=== PATIENT | female | born 1960 | race Caucasian/White ===

== ENCOUNTER 2016-08-21 23:09 | Emergency (ER) | payer MEDICAID, OTHER ==
[2016-08-21 23:16] VITALS: TEMP 97.5
--- NOTE | 2016-08-21 23:47 | EDPHY ---
H & P Stated Complaint: sternal pain, B flank pain, generalized aches/cramps x3hr HPI/ROS: HPI CHIEF COMPLAINT: Multiple complaints HISTORY OF PRESENT ILLNESS: This patient very pleasant 56-year-old female significant past medical history for hepatitis-C, she presents emergency room stating that she has low back pain that has radiated out both right and left CVA region. Patient tells me that she has burning pain all over body, denies having fever, denies having chest pain or significant shortness of breath. She does tell me her main complaint is lower back pain, bilateral CVA region. She does endorse a cough with sputum production. She also tells me that she has burning skin all over. She denies headache or neck pain. Past Medical History: Hepatitis-C, liver cirrhosis, esophageal varices, GI bleed Past Surgical History: Denies any recent surgical history Social History: Occasional marijuana use, denies alcohol, illicit drugs or tobacco Family History: noncontributory ROS REVIEW OF SYSTEMS: A comprehensive 10 point review of systems is otherwise negative aside from elements mentioned in the history of present illness. Exam Constitutional Appears well nontoxic,triage nursing summary reviewed, vital signs reviewed, awake/alert. Eyes normal conjunctivae and sclera, EOMI, PERRLA. HENT normal inspection, atraumatic, moist mucus membranes, no epistaxis, neck supple/ no meningismus, no raccoon eyes. Respiratory clear to auscultation bilaterally, normal breath sounds, no respiratory distress, no wheezing. Cardiovascular rate normal, regular rhythm, no murmur, no edema, distal pulses normal. Gastrointestinal no fluid wave, no significant distension, soft, non-tender, no rebound, no guarding, normal bowel sounds, no distension, no pulsatile mass. Genitourinary no CVA tenderness. Musculoskeletal no midline vertebral tenderness, full range of motion, no calf swelling, no tenderness of extremities, no meningismus, good pulses, neurovascularly intact. Skin pink, warm, & dry, no rash, skin atraumatic. Neurologic awake, alert and oriented x 3, AAOx3, moves all 4 extremities equally, motor intact, sensory intact, CN II-XII intact, normal cerebellar, normal vision, normal speech. Psychiatric normal mood/affect. Heme/Lymph/Immune no lymphadenopathy. Differential Diagnosis: Includes but is not limited to in a particular order, urinary tract infection, pyelonephritis, gastritis, pancreatitis, pneumonia, pulmonary embolism, ACS, acute MA, dissection Medical Decision Making: patient had an IV established obtain blood work, she will be given a fluid bolus, 100 mcg IV fentanyl for pain control. Check a chest x-ray, EKG, cardiac marker, urine for pyelonephritis. Abdominal blood work. Re-evaluation: EKG interpretation by me on record in [employer] system. Impression time of EKG 2349, this is sinus rhythm rate of 72, no acute ischemic changes appreciated specifically no ST elevation, ST depression T-wave abnormalities. No prolonged intervals. 0127: CT scan of the Chest The results of the study are Negative for PE, clear lungs. The study was read by Dr. Amaya. I viewed the images myself on the PACS system. CT scan of the abdomen pelvis with IV contrast. The results of the study are mild thickening of the descending colon, otherwise no free air, no evidence of pyelonephritis. The study was read by Dr. Amaya I viewed the images myself on the PACS system. 0321: On re-evaluation patient is resting comfortably however she is now complaining of diffuse entire whole body pain. She tells me the fentanyl has not been working for her and she is specifically requesting Dilaudid. On re- examination abdomen is soft she is not having any chest pain. She tells me she has bony pain all over. I have ordered her 4 mg IV morphine to see if this improves her pain. Of note on evaluation of her lab work she does have some elevated LFTs and bilirubin however these have been elevated in the past. She does have underlying liver cirrhosis, hepatitis C. this patient does not have a fever here. Otherwise her blood work is reassuring. I have not found anything acute. Patient tells me that she is irate that she got fentanyl multiple times. She fired her "nurse" patient tells me that she wants Dilaudid does not want fentanyl. Patient states "I fired my fucking nurse for not giving me Dilaudid" 0327: re-evaluation at this time I did agree to give her 1 more dose of pain medicine and IV morphine. I did review her blood work including bilirubin and LFTs. Her LFTs been higher in the past, her bili room is slightly higher than normal however she does a high bilirubin. I have found any acute signs of infection or acute abnormality on CT scan of her chest shows no pulmonary embolism or pneumonia. The CT of the abdomen shows some thickening of her ascending colon however she has not had any diarrhea and she is not having severe abdominal pain. Patient having diffuse pain. No great explanation for this. Her pain is controlled after morphine. She upon going home. She has no abdominal pain nose no fluid wave. No fever no high leukocytosis. I feel comfortable allowing this patient to go home. She does understand return emergency room if she has worsening symptoms includes vomiting, high fever. Source: Patient - Personal History Current Tetanus/Diphtheria Vaccine: No Current Tetanus Diphtheria and Acellular Pertussis (TDAP): No - Medical/Surgical History Hx Asthma: No Hx Chronic Respiratory Disease: No Hx Diabetes: No Hx Cardiac Disease: No Hx Renal Disease: No Hx Cirrhosis: No Hx Alcoholism: No Hx HIV/AIDS: No Hx Splenectomy or Spleen Trauma: No Other PMH: Hep C , "bad liver", hx pneumonia - Social History Smoking Status: Former smoker Constitutional: Initial Vital Signs Temperature (C) 36.4 C 08/21/16 23:10 Heart Rate 74 08/21/16 23:10 Respiratory Rate 18 08/21/16 23:10 Blood Pressure 101/63 08/21/16 23:10 O2 Sat (%) 95 08/21/16 23:10 O2 Delivery Mode Nasal Cannula O2 (L/minute) 2 Allergies/Adverse Reactions: latex Allergy (Intermediate, Verified 05/07/13 14:50) rash, itching tomatoes Allergy (Mild, Uncoded 01/17/13 17:14) heartburn Home Medications: Medication Instructions Recorded Ascorbic Acid 500 mg PO DAILY PRN 05/07/13 Albuterol Hfa Anes Only 08/21/16 Medical Decision Making - Data Points Laboratory Results: Laboratory Results 08/21/16 23:54 08/21/16 23:54 08/22/16 08/21/16 08/21/16 01:45 23:54 23:54 WBC RBC Hgb Hct MCV MCH MCHC RDW Plt Count MPV Neut % (Auto) Lymph % (Auto) [place] % (Auto) Eos % (Auto) Baso % (Auto) Nucleat RBC Rel Count Absolute Neuts (auto) Absolute Lymphs (auto) Absolute Monos (auto) Absolute Eos (auto) Absolute Basos (auto) Absolute Nucleated RBC Immature Gran % Immature Gran # PT 17.7 SEC H SEC (12.0-15.0) INR 1.46 H (0.83-1.16) APTT 33.1 SEC SEC (23.0-38.0) D-Dimer 0.43 ug/mLFEU ug/mLFEU (0.00-0.50) Sodium 139 mEq/L mEq/L (134-144) Potassium 4.0 mEq/L mEq/L (3.5-5.2) Chloride 114 mEq/L H mEq/L (97-110) Carbon Dioxide 18 mEq/l L mEq/l (22-31) Anion Gap 7 mEq/L L mEq/L (8-16) BUN 12 mg/dL mg/dL (7-23) Creatinine 0.6 mg/dL mg/dL (0.6-1.0) Estimated GFR > 60 Glucose 107 mg/dL H mg/dL (70-100) Calcium 8.9 mg/dL mg/dL (8.5-10.4) Magnesium 1.6 mg/dL mg/dL (1.6-2.3) Total Bilirubin 3.5 mg/dL H mg/dL (0.1-1.4) Conjugated Bilirubin 1.3 mg/dL H mg/dL (0.0-0.5) Unconjugated Bilirubin 2.2 mg/dL H mg/dL (0.0-1.1) AST 87 IU/L H IU/L (14-46) ALT 58 IU/L H IU/L (9-52) Alkaline Phosphatase 133 IU/L H IU/L (38-126) Creatine Kinase 84 IU/L IU/L (0-156) CK-MB (CK-2) Fraction 1.61 ng/mL ng/mL (0-3.19) Troponin I < 0.012 ng/mL ng/mL (0-0.034) NT-Pro-B Natriuret Pep 110 pg/mL pg/mL (0-125) Total Protein 7.5 g/dL g/dL (6.3-8.2) Albumin 2.9 g/dL L g/dL (3.5-5.0) Lipase 194.0 IU/L IU/L (23-300) Urine Color MONY Urine Appearance CLEAR Urine pH 5.0 (5.0-7.5) Ur Specific [place] > 1.035 H (1.002-1.030) Urine Protein NEGATIVE (NEGATIVE) Urine Ketones TRACE H (NEGATIVE) Urine Blood 2+ H (NEGATIVE) Urine Nitrate NEGATIVE (NEGATIVE) Urine Bilirubin NEGATIVE (NEGATIVE) Urine Urobilinogen 4.0 EU H EU (0.2-1.0) Ur Leukocyte Esterase NEGATIVE (NEGATIVE) Urine RBC 25-50 /hpf H /hpf (0-3) Urine WBC 1-3 /hpf /hpf (0-3) Ur Epithelial Cells TRACE /lpf /lpf (NONE-1+) Urine Bacteria TRACE /hpf H /hpf (NONE SEEN) Urine Mucus 1+ /lpf /lpf (NONE-1+) Ur Culture Indicated? NOT INDICATED (NI) Urine Glucose NEGATIVE (NEGATIVE) Urine Opiates Screen NEGATIVE (NEGATIVE) Urine Barbiturates NEGATIVE (NEGATIVE) Ur Phencyclidine Scrn NEGATIVE (NEGATIVE) Ur Amphetamine Screen NEGATIVE (NEGATIVE) U Benzodiazepines Scrn NEGATIVE (NEGATIVE) Urine Cocaine Screen NEGATIVE (NEGATIVE) U Marijuana (THC) Screen NON-NEGATIVE H (NEGATIVE) 08/21/16 23:54 WBC 3.92 10^3/uL 10^3/uL (3.80-9.50) RBC 4.69 10^6/uL 10^6/uL (4.18-5.33) Hgb 16.4 g/dL H g/dL (12.6-16.3) Hct 46.7 % % (38.0-47.0) MCV 99.6 fL fL (81.5-99.8) MCH 35.0 pg H pg (27.9-34.1) MCHC 35.1 g/dL g/dL (32.4-36.7) RDW 14.7 % % (11.5-15.2) Plt Count 50 10^3/uL L 10^3/uL (150-400) MPV 11.0 fL fL (8.7-11.7) Neut % (Auto) 68.9 % % (39.3-74.2) Lymph % (Auto) 18.4 % % (15.0-45.0) [place] % (Auto) 9.9 % % (4.5-13.0) Eos % (Auto) 1.8 % % (0.6-7.6) Baso % (Auto) 0.5 % % (0.3-1.7) Nucleat RBC Rel Count 0.0 % % (0.0-0.2) Absolute Neuts (auto) 2.70 10^3/uL 10^3/uL (1.70-6.50) Absolute Lymphs (auto) 0.72 10^3/uL L 10^3/uL (1.00-3.00) Absolute Monos (auto) 0.39 10^3/uL 10^3/uL (0.30-0.80) Absolute Eos (auto) 0.07 10^3/uL 10^3/uL (0.03-0.40) Absolute Basos (auto) 0.02 10^3/uL 10^3/uL (0.02-0.10) Absolute Nucleated RBC 0.00 10^3/uL 10^3/uL (0-0.01) Immature Gran % 0.5 % % (0.0-1.1) Immature Gran # 0.02 10^3/uL 10^3/uL (0.00-0.10) PT INR APTT D-Dimer Sodium Potassium Chloride Carbon Dioxide Anion Gap BUN Creatinine Estimated GFR Glucose Calcium Magnesium Total Bilirubin Conjugated Bilirubin Unconjugated Bilirubin AST ALT Alkaline Phosphatase Creatine Kinase CK-MB (CK-2) Fraction Troponin I NT-Pro-B Natriuret Pep Total Protein Albumin Lipase Urine Color Urine Appearance Urine pH Ur Specific [place] Urine Protein Urine Ketones Urine Blood Urine Nitrate Urine Bilirubin Urine Urobilinogen Ur Leukocyte Esterase Urine RBC Urine WBC Ur Epithelial Cells Urine Bacteria Urine Mucus Ur Culture Indicated? Urine Glucose Urine Opiates Screen Urine Barbiturates Ur Phencyclidine Scrn Ur Amphetamine Screen U Benzodiazepines Scrn Urine Cocaine Screen U Marijuana (THC) Screen Medications Given: Discontinued Medications Fentanyl (Sublimaze) 100 mcg IVP EDNOW ONE Stop: 08/21/16 23:54 Last Admin: 08/22/16 00:19 Dose: 100 mcg Fentanyl (Sublimaze) 50 mcg IVP EDNOW ONE Stop: 08/22/16 02:20 Last Admin: 08/22/16 02:29 Dose: 50 mcg Sodium Chloride (Ns) 1,000 mls @ 0 mls/hr IV ONCE ONE PRN Reason: Wide Open Stop: 08/21/16 23:53 Last Admin: 08/22/16 00:19 Dose: 1,000 mls Sodium Chloride (Ns) 1,000 mls @ 0 mls/hr IV ONCE ONE PRN Reason: Wide Open Stop: 08/22/16 00:00 Last Admin: 08/22/16 00:20 Dose: 1,000 mls Ondansetron HCl (Zofran) 4 mg IVP EDNOW ONE Stop: 08/21/16 23:54 Last Admin: 08/22/16 00:19 Dose: 4 mg Departure - Departure Disposition: Home, Routine, Self-Care Clinical Impression: Diffuse pain Condition: Good Instructions: Hepatitis C (ED) Additional Instructions: 1. Stay well-hydrated drink lots of fluids 2. return to the emergency room if you have any worsening symptoms questions or concerns. Referrals: Edgar Estrada MD [Primary Care Provider] - As per Instructions
--- NOTE | 2016-08-21 23:51 | CPEKG ---
Heart Rate: 72 RR Interval: 833 P-R Interval: 172 QRSD Interval: 82 QT Interval: 416 QTC Interval: 456 P [place]: 71 QRS [place]: 66 T Wave [place]: 65 EKG Severity - NORMAL ECG - EKG Impression: SINUS RHYTHM Electronically Signed By: Ilya Dominguez 23-Aug-2016 15:10:37
[2016-08-21] MEDS ORDERED: NS 1,000 ML IV ONE ×2 (23:52→23:59)
[2016-08-21] MEDS ORDERED: fentaNYL 100 MCG/2 ML INJ IVP ONE (23:53)
[2016-08-21] MEDS ORDERED: ONDANSETRON 4 MG/2 ML VIAL IVP ONE (23:53)
[2016-08-22 00:21] VITALS: BP 92/59; PULSE 59; RESP 16; O2SAT 94
[2016-08-22 00:21] LABS: % IMMATURE GRANULYOCYTES 0.5 % (0.0-1.1); ABSOLUTE IMMATURE GRANULOCYTES 0.02 10^3/uL (0.00-0.10); ADD DIFF? NO; ADD MORPH? NO; ADD SCAN? NO; ATYPICAL LYMPHOCYTE FLAG 10 (0-99); FRAGMENT RBC FLAG 0 (0-99); HEMATOCRIT 46.7 % (38.0-47.0); HEMOGLOBIN 16.4 g/dL (12.6-16.3); LEFT SHIFT FLG 0 (0-99); LIPEMIA HEMOLYSIS FLAG 90 (0-99); MEAN CELL HEMOGLOBIN CONCENTR. 35.1 g/dL (32.4-36.7); MEAN CELL VOLUME 99.6 fL (81.5-99.8); PLATELET CLUMPS FLAG 0 (0-99); PLATELET COUNT 50 10^3/uL (150-400); RED BLOOD CELL COUNT 4.69 10^6/uL (4.18-5.33); RED CELL DISTRIBUTION WIDTH 14.7 % (11.5-15.2)
[2016-08-22 00:29] LABS: INR 1.46 (0.83-1.16); PROTIME(PATIENT) 17.7 SEC (12.0-15.0)
[2016-08-22 00:30] LABS: APTT 33.1 SEC (23.0-38.0)
[2016-08-22 00:32] LABS: ALANINE AMINOTRANSFERASE 58 IU/L (9-52); ALBUMIN 2.9 g/dL (3.5-5.0); ALKALINE PHOSPHATASE 133 IU/L (38-126); ANION GAP 7 mEq/L (8-16); ASPARTATE AMINOTRANSFERASE 87 IU/L (14-46); BILIRUBIN,TOTAL 3.5 mg/dL (0.1-1.4); BILIRUBIN-CONJUGATED 1.3 mg/dL (0.0-0.5); BILIRUBIN-UNCONJUGATED 2.2 mg/dL (0.0-1.1); CALCIUM 8.9 mg/dL (8.5-10.4); CARBON DIOXIDE 18 mEq/l (22-31); CHLORIDE 114 mEq/L (97-110); CREATININE 0.6 mg/dL (0.6-1.0); GLOMERULAR FILTRATION RATE > 60; GLUCOSE 107 mg/dL (70-100); MAGNESIUM 1.6 mg/dL (1.6-2.3); SODIUM 139 mEq/L (134-144); TOTAL PROTEIN 7.5 g/dL (6.3-8.2)
[2016-08-22] MEDS ORDERED: IOPAMIDOL (ISOVUE-300) 100 ML BTL IV ONE (00:42)
[2016-08-22 00:44] LABS: CREATINE KINASE-MB FRACTION 1.61 ng/mL (0-3.19); TROPONIN I < 0.012 ng/mL (0-0.034)
[2016-08-22 02:12] LABS: COLOR AMBER; LEUKOCYTE ESTERASE,URINE NEGATIVE (NEGATIVE); NITRITE,URINE NEGATIVE (NEGATIVE)
[2016-08-22] MEDS ORDERED: fentaNYL 100 MCG/2 ML INJ IVP ONE (02:19)
[2016-08-22 02:24] LABS: BACTERIA TRACE /hpf (NONE SEEN); MUCUS 1+ /lpf (NONE-1+); RBC,URINE 25-50 /hpf (0-3)
== END 2016-08-22 04:18 | disposition home or self-care (01) ==
DX: M54.5 Low back pain (principal); Z87.891 Personal history of nicotine dependence; Z91.040 Latex allergy status
CPT/HCPCS: 80305; 96374; J2405; J3010; Q9967

== ENCOUNTER → 2017-03-07 | Outpatient (CLI) | payer MEDICAID ==
[~2017-03-07] MED LIST: IOPAMIDOL (ISOVUE-300) 100 ML BTL ONE
== END ==
LOC: FIMAGING 09:54
PROVIDERS: ATTEND Internal Medicine
DX: K76.89 Other specified diseases of liver (principal); K74.69 Other cirrhosis of liver; R18.8 Other ascites; K80.20 Calculus of gallbladder without cholecystitis without obstruction
CPT/HCPCS: Q9967

== ENCOUNTER → 2017-03-24 | Outpatient (CLI) | payer MEDICAID ==
[~2017-03-24] MED LIST changes: +GADOBUTROL 10 ML VIAL IVP ONE; -IOPAMIDOL (ISOVUE-300) 100 ML BTL ONE
== END ==
LOC: FIMAGING 17:09
PROVIDERS: ATTEND Internal Medicine
DX: K74.69 Other cirrhosis of liver (principal)
CPT/HCPCS: A9585